=== PATIENT | female | born 1985 | race Caucasian/White ===

== ENCOUNTER 2022-10-16 10:32 | Observation (INO) ==
[2022-10-16 12:53] VITALS: BMI 24.0
[2022-10-16] MEDS ORDERED: NS 1,000 ML IV 1,000 ML IV SCH (14:00)
[2022-10-16 14:09] LABS: BASOPHILS % (AUTO) 0.6 % (0.2-1.0); EOSINOPHILS % (AUTO) 0.6 % (0.9-2.9); HEMATOCRIT 43.7 % (36.0-47.0); HEMOGLOBIN 15.7 g/dL (12.0-16.0); LYMPHOCYTES # (AUTO) 2.1 X10^3/uL (1.3-2.9); LYMPHOCYTES % (AUTO) 27.1 % (21.0-51.0); MEAN CORPUSCULAR HGB CONC 35.9 g/dL (33.0-35.0); MEAN CORPUSCULAR VOLUME 89.2 fL (80.0-100.0); MEAN PLATELET VOLUME 7.9 fL (7.4-11.0); MONOCYTES # (AUTO) 0.6 x10^3/uL (0.3-0.8); NEUTROPHILS # (AUTO) 4.9 x10^3/uL (2.2-4.8); NEUTROPHILS % (AUTO) 63.7 % (42.0-75.0); PLATELET COUNT 215 X10^3/uL (150.0-450.0); WHITE BLOOD COUNT 7.7 X10^3/uL (3.6-10.0)
--- NOTE | 2022-10-16 14:21 | EKG ---
Test Reason : chest pain Blood Pressure : */* mmHG Vent. Rate : 89 BPM Atrial Rate : 89 BPM P-R Int : 162 ms QRS Dur : 100 ms QT Int : 380 ms P-R-T Axes : 63 54 34 degrees QTc Int : 462 ms Normal sinus rhythm Normal ECG No previous ECGs available Confirmed by Martin De Leon (4) on 10/16/2022 5:38:22 PM Referred By: Confirmed By: Martin De Leon
[2022-10-16 14:29] LABS: ALANINE AMINOTRANSFERASE 29 Units/L (12-78); ALBUMIN 4.6 g/dL (3.4-5.0); ALKALINE PHOSPHATASE 118 Units/L (46-116); ASPARTATE AMINO TRANSFERASE 22 Units/L (15-37); BLOOD UREA NITROGEN 13 mg/dL (7-18); CALCIUM 8.9 mg/dL (8.5-10.1); CARBON DIOXIDE 37.8 mmol/L (21-32); CHLORIDE 94 mmol/L (98-107); CREATINE KINASE 98 Units/L (26-192); CREATININE 0.98 mg/dL (0.55-1.02); GLUCOSE 103 mg/dL (65-99); SODIUM 138 mmol/L (136-145); TOTAL PROTEIN 8.3 g/dL (6.4-8.2); eGFR NON BLACK RACES > 60 (>60)
[2022-10-16 14:33] LABS: POTASSIUM 2.3 mmol/L (3.5-5.1)
[2022-10-16] MEDS ORDERED: K-DUR TAB 20 MEQ PO PRN (14:37)
[2022-10-16] MEDS ORDERED: MICRO K EXTEN CAP 10 MEQ PO PRN (14:37)
[2022-10-16] MEDS ORDERED: KLOR-CON PO PRN (14:37)
[2022-10-16] MEDS ORDERED: POTASSIUM CHL 60 MEQ/NS 0.45% 500 ML IV PRN (14:37)
[2022-10-16] MEDS ORDERED: K-RIDER 10 MEQ/NS 100 ML 10 MEQ/100 ML BAG IV PRN (14:37)
[2022-10-16] MEDS ORDERED: POTASSIUM CHL 40 MEQ/NS 0.45% 500 ML IV PRN (14:37)
[2022-10-16] MEDS ORDERED: POTASSIUM CHLORIDE LIQ 20 MEQ UDC PO PRN (14:37)
[2022-10-16] MEDS ORDERED: MAGNESIUM SULFATE 1 GRAM/100 mL PREMIX 1 G/100 ML BAG IV PRN (14:37)
[2022-10-16] MEDS: HYZAAR 50/12.5 MG PO SCH (15:46)
[2022-10-16] MEDS: MAG-OX TAB PO SCH ×2 (15:47→20:58)
[2022-10-16] MEDS: TOPROL XL PO SCH (15:47)
[2022-10-16] MEDS: K-DUR TAB 20 MEQ PO SCH (15:47)
[2022-10-16] MEDS: NS + KCL 20 MEQ/L 1,000 ML IV SCH (15:48)
[2022-10-16] MEDS ORDERED: TYLENOL 325 MG TAB PO PRN (16:03)
--- NOTE | 2022-10-16 19:33 | EKG ---
Test Reason : chest pain Blood Pressure : */* mmHG Vent. Rate : 72 BPM Atrial Rate : 72 BPM P-R Int : 146 ms QRS Dur : 96 ms QT Int : 414 ms P-R-T Axes : 47 63 59 degrees QTc Int : 453 ms Normal sinus rhythm Nonspecific T wave abnormality Abnormal ECG When compared with ECG of 16-OCT-2022 14:00, No significant change was found Confirmed by Martin De Leon (4) on 10/19/2022 9:04:26 AM Referred By: Confirmed By: Martin De Leon
--- NOTE | 2022-10-17 02:01 | RAD ---
HISTORYchest painSTUDYCHEST, 1 VIEWCOMPARISONNone availableTECHNIQUEChest radiographic imaging, frontal projection, 1 imageFINDINGSNo cardiomegaly.No focal airspace disease.No pleural effusion.No pneumothorax.No acute osseous abnormality.IMPRESSIONNo imaging findings of acute cardiopulmonary disease.Electronically signed by: Dev Kaba (Oct 17, 2022 00:28:31)
[2022-10-17] MEDS: NS + KCL 20 MEQ/L 1,000 ML IV SCH ×2 (03:31→04:07)
--- NOTE | 2022-10-17 04:42 | EKG ---
Test Reason : chest pain Blood Pressure : */* mmHG Vent. Rate : 64 BPM Atrial Rate : 64 BPM P-R Int : 154 ms QRS Dur : 96 ms QT Int : 466 ms P-R-T Axes : 54 54 50 degrees QTc Int : 480 ms Normal sinus rhythm Low voltage QRS Prolonged QT Abnormal ECG Confirmed by Martin De Leon (4) on 10/19/2022 9:04:19 AM Referred By: Confirmed By: Martin De Leon
[2022-10-17 05:57] LABS: ALANINE AMINOTRANSFERASE 23 Units/L (12-78); ALBUMIN 3.5 g/dL (3.4-5.0); ALKALINE PHOSPHATASE 92 Units/L (46-116); ASPARTATE AMINO TRANSFERASE 16 Units/L (15-37); BLOOD UREA NITROGEN 12 mg/dL (7-18); CALCIUM 8.1 mg/dL (8.5-10.1); CARBON DIOXIDE 35.3 mmol/L (21-32); CHLORIDE 101 mmol/L (98-107); CREATININE 0.91 mg/dL (0.55-1.02); GLUCOSE 90 mg/dL (65-99); SODIUM 139 mmol/L (136-145); TOTAL PROTEIN 6.6 g/dL (6.4-8.2); eGFR NON BLACK RACES > 60 (>60)
[2022-10-17 05:58] LABS: BASOPHILS % (AUTO) 0.5 % (0.2-1.0); EOSINOPHILS # (AUTO) 0.1 x10^3/uL (0.0-0.2); EOSINOPHILS % (AUTO) 1.4 % (0.9-2.9); HEMATOCRIT 38.5 % (36.0-47.0); HEMOGLOBIN 13.9 g/dL (12.0-16.0); LYMPHOCYTES # (AUTO) 2.4 X10^3/uL (1.3-2.9); LYMPHOCYTES % (AUTO) 38.7 % (21.0-51.0); MEAN CORPUSCULAR VOLUME 88.7 fL (80.0-100.0); MEAN PLATELET VOLUME 8.2 fL (7.4-11.0); MONOCYTES # (AUTO) 0.5 x10^3/uL (0.3-0.8); MONOCYTES % (AUTO) 8.7 % (0.0-13.0); NEUTROPHILS # (AUTO) 3.1 x10^3/uL (2.2-4.8); NEUTROPHILS % (AUTO) 50.7 % (42.0-75.0); PLATELET COUNT 195 X10^3/uL (150.0-450.0); RED BLOOD COUNT 4.34 X10^6/uL (3.5-5.4); RED CELL DISTRIBUTION WIDTH 11.9 % (11.6-16.5); WHITE BLOOD COUNT 6.2 X10^3/uL (3.6-10.0)
[2022-10-17 08:12] VITALS: O2SAT 100
[2022-10-17] MEDS: K-DUR TAB 20 MEQ PO SCH (08:25)
[2022-10-17] MEDS: MAG-OX TAB PO SCH (08:26)
[2022-10-17] MEDS: TOPROL XL PO SCH (08:26)
[2022-10-17] MEDS: HYZAAR 50/12.5 MG PO SCH (08:27)
--- NOTE | 2022-10-17 10:40 | DR.CARTERS ---
Short Stay Summary - Admission Date Date of Admission: 10/16/22 - Discharge Date Discharge Date: 10/17/22 - Admission Diagnoses (1) Chest pain, rule out acute myocardial infarction Status: Acute (2) Arm paresthesia, right Status: Acute (3) Uncontrolled hypertension Status: Acute - Discharge Medications Discharge Medications: Home Medication List hydrochlorothiazide 12.5 mg capsule 12.5 mg PO DAILY 10/16/22 [History] pantoprazole 40 mg tablet,delayed release 40 mg PO DAILY 10/16/22 [History] losartan 50 mg tablet 50 mg PO QDAY #30 tabs 10/17/22 [Rx] potassium chloride 20 mEq tablet,extended release(part/cryst) 20 meq PO QDAY #30 tabs 10/17/22 [Rx] Prescriptions: Brian Dejesus potassium chloride Brian Marrufo - Hospital Course Hospital Course: IS A 37 YEAR OLD PATIENT OF OURS. SHE PRESENTED TO THE OFFICE ON 10/16/22 WITH COMPLAINTS OF NUMBNESS TO THE RIGHT ARM AND HAND. SYMPTOMS REPORTEDLY STARTED FOUR DAYS PRIOR. SHE ALSO COMPLAINED OF ELEVATED BLOOD PRESSURE. IN ADDITION TO RIGHT ARM AND HAND PARASTHESIA AND ELEVATED BLOOD PRESSURE, SHE COMPLAINED OF RECENT CHEST DISCOMFORT. SHE REPORTED THAT CHEST PAIN AND DISCOMFORT HAS BEEN ON AND OFF FOR THE PAST FEW MONTHS. SHE DENIED SHORTNESS OF BREATH, DIZZINESS, OR SYNCOPE. WHILE IN THE OFFICE, HER BLOOD PRESSURE WAS NOTED TO BE 134/100, PULSE 110 BPM. DECISION WAS MADE TO ADMIT PATIENT TO THE HOSPITAL FOR FURTHER EVALUATION AND TREATMENT OF CHEST PAIN, PARASTHESIA, AND UNCONTROLLED HTN. ON ARRIVAL TO THE HOSPITAL, HER VITALS WERE: 97.0-821-67-100%-133/98. LABS WERE OBTAINED. WBC 7.7, RBC 4.90, HGB 5.7, HCT 43.7, PLT COUNT 215, SODIUM 138, POTASSIUM 2.3, CHLORIDE 94, CARBON DIOXIDE 37.8, BUN 13, CREATININE 0.98, GLUCOSE 103, CACLIUM 8.9, MAGNESUM 1.9, TOTAL BILI 2.40, AST 22, ALT 29, ALK PHOS 118, CREATINE KINASE 98, TROPONIN 5.5, TOTAL PROTEIN 8.3, ALBUMIN 4.6. A CHEST XRAY WAS OBTAINED AND REVEALED: NO IMAGING FINDINGS OF ACUTE CARDIOPULMONARY DISEASE. EKG REVEALED: NORMAL SINUS RHYTHM WITH HR 89 BPM. NORMAL ECG. ECHOCARDIOGRAM WAS OBTAINED AND REVEALED NORMAL EJECTION FRACTION OF 68%. RVSP 20mmHG. 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 HE RECOMMENDED TO CONTINUE HER CURRENT DOSE OF TOPROL XL AND HE ALSO ADDED HYZAAR 50/12.5MG DAILY. HE REPORTED THAT IF HER ECHO AND CAROTID DOPPLER WAS NEGATIVE, THEN HE WOULD FOLLOW-UP WITH HER IN THE OFFICE AN OUTPATIENT AND WOULD CONSIDER AN OUTPATIENT STRESS TEST SOMETIME IN THE NEXT FEW WEEKS. SHE WAS STARTED ON NORMAL SALINE WITH 20MEQ KCL AT 80 ML/HR, THE POTASSIUM AND MAGNESIUM PROTOCOLS, TOPROL XL 25MG DAILY, HYZAAR 50/12.5MG DAILY, MAG-OX 400MG BID, AND TYLENOL 650MG PO Q6H PRN. WE PLANNED TO OBTAIN A CAROTID DOPPLER STUDY. OTHERWISE, WE PLANNED TO FOLLOW UP WITH AM LABS AND CONTINUE TO MONITOR. ON THE MORNING FOLLOWING ADMISSION, PATIENT IS ALERT AND ORIENTED, LYING IN BED ON MORNING ROUNDS. SHE CONTINUES TO COMPLAIN OF INTERMITTENT NUMBNESS OF THE RIGHT ARM AND HAND, BUT DENIES OTHER COMPLAINTS. SHE DENIES CHEST PAIN AT THE PRESENT TIME. SHE HAS HAD AN UNEVENTFUL NIGHT. ON EXAMINATION, HEART IS REGULAR IN RATE AND RHYTHM. BILATERAL LUNGS ARE CLEAR TO AUSCULTATION. ABDOMEN IS ROUND, SOFT, AND NON-TENDER WITH NORMAL BOWEL SOUNDS NOTED IN ALL QUADRANTS. GOOD MOVEMENT NOTED TO UPPER AND LOWER EXTREMITIES WITH NO EDEMA NOTED. HER VITALS THIS MORNING ARE: 98.1-67-18-100%-110/64. LABS WERE OBTAINED. WBC 6.2, RBC 4.34, HGB 13.9, HCT 38.5, PLT COUNT 195, SODIUM 139, POTASSIUM 3.0, CHLORIDE 100, CARBON DIOXIDE 35.3, BUN 12, CREATININE 0.91, GLUCOSE 90, CALCIUM 8.1, MAGNESIUM 2.3, TOTAL BILI 2.00, AST 16, ALT 23, ALK PHOS 92, TOTAL PROTEIN 6.6, ALBUMIN 3.5. WE OBTAINED A CAROTID DOPPLER, BUT RESULTS ARE NOT BACK YET. WE PLANNED FOR DISCHARGE. INSTRUCTIONS FOR MEDICATIONS AND FOLLOW-UP WERE DISCUSSED WITH PATIENT. SHE VERBALIZED UNDERSTANDING OF ORDERS. SHE WAS INSTRUCTED TO CONTINUE HER CURRENT MEDICATIONS. WE WILL ALSO ADD LOSARTAN 50MG DAILY. SHE IS INSTRUCTED TO FOLLOW-UP IN THE OFFICE IN ONE WEEK. WE WILL ALSO SET HER UP WITH IN HIS OFFICE. PATIENT TO BE DISCHARGED HOME WITH FAMILY IN STABLE CONDITION. TIME SPENT ON CLINICAL ASSESSMENT, REVIEWING LABS AND IMAGING, DECISION MAKING, DISCHARGE INSTRUCTIONS, PREPARING DISCHARGE PAPERS, AND DOCUMENTATION GREATER THAN 75 MINUTES. - Discharge Plan Disposition: 01 HOME, SELF-CARE Condition: Stable Prescriptions: losartan 50 mg PO QDAY #30 tabs potassium chloride 20 meq PO QDAY #30 tabs - Follow up/Referrals Follow up/Referrals: JENNIFER SUMNER [Primary Care Provider] - 1 WEEK Martin De Leon [STAFF PHYSICIAN] - 1 WEEK - Instructions Additional Instructions: DIET TOLERATED. ACTIVITY TOLERATED. Forms: Excuse From Work or School
[2022-10-17 14:14] VITALS: BP 99/62; PULSE 61; TEMP 98
--- NOTE | 2022-10-17 17:22 | VAS ---
HISTORY: Concern for carotid artery stenosis. Carotid atherosclerosis.EXAM: BILATERAL DOPPLER CAROTID ULTRASOUND EXAMTechnique: Multiple serra scale and color flow Doppler images of the right and left carotid arterial system were obtained.The vertebral arterial system was evaluated as well.Findings: Nonocclusive color flow Doppler is seen throughout the right and left carotid arterial system. No hemodynamically significant carotid arterial stenosis is seen based on velocity criteria. There is [mild] atherosclerosis and mixed atherosclerotic plaque formation of the bilateral carotid bulbs and ICAs with associated intimal thickening but [without] evidence for high-grade stenosis (>70%) or occlusion of the carotid arteries. The right and left vertebral artery demonstrate antegrade flow.IMPRESSION: Mild bilateral carotid atherosclerosis and soft atherosclerotic plaque formation of the bilateral carotid bulbs and [in both] ICAs with [id number] associated carotid intimal thickening but without evidence for high-grade stenosis or occlusion of the carotid arteries, based on Doppler velocity criteria.Appropriate, antegrade, vertebral arterial flow.Peak right ICA velocity: 67 centimeter/seconds.Peak right CCA velocity: 56 centimeter/seconds.Peak left ICA velocity: 81 centimeter/seconds.Peak left CCA velocity: 87 centimeter/seconds.Right ICA to CCA ratio: 2.0.Left ICA to CCA ratio: 1.4.Electronically signed by: ARELI STEIN III (Oct 17, 2022 17:21:22)
== END 2022-10-17 13:45 | disposition home or self-care (01) ==
LOC: MED/SURG
PROVIDERS: ADMIT Internal Medicine; ATTEND Internal Medicine
DX: R53.1 Weakness; R07.89 Other chest pain; E87.6 Hypokalemia; F41.8 Other specified anxiety disorders; R20.2 Paresthesia of skin; I10 Essential (primary) hypertension